=== PATIENT | female | born 1960 | race Caucasian/White ===

== ENCOUNTER 2023-05-20 06:00 | Day surgery (SDC) | payer OTHER ==
[~2023-05-20] VITALS: Ht 152.4 cm; Wt 68.0 kg
[2023-05-20] MEDS ORDERED: fentaNYL citrate 0.05 MG/ML VIAL ONE (07:28)
[2023-05-20] MEDS ORDERED: diphenhydrAMINE 50 MG/ML VIAL ONE (07:28)
[2023-05-20] MEDS ORDERED: LIDOCAINE 2% 100 MG/5 ML UJET TP ONE (07:29)
[2023-05-20] MEDS ORDERED: MIDAZOLAM 2 MG/2 ML VIAL ONE (07:29)
[2023-05-20] MEDS ORDERED: MIDAZOLAM 2 MG/2 ML VIAL IVP ONE (13:05)
[2023-05-20] MEDS ORDERED: fentaNYL citrate 0.05 MG/ML VIAL IVP ONE (13:05)
== END 2023-05-20 08:57 | disposition home or self-care (01) ==
LOC: MOR 06:00 → MMU 06:28 → MOR 08:57
PROVIDERS: ATTEND Internal Medicine Gastroenterology
DX: Z12.11 Encounter for screening for malignant neoplasm of colon (principal); K63.5 Polyp of colon; I10 Essential (primary) hypertension; E78.5 Hyperlipidemia, unspecified; F41.9 Anxiety disorder, unspecified; F32.A Depression, unspecified; M19.90 Unspecified osteoarthritis, unspecified site; E11.9 Type 2 diabetes mellitus without complications; F17.210 Nicotine dependence, cigarettes, uncomplicated; Z79.82 Long term (current) use of aspirin; Z79.84 Long term (current) use of oral hypoglycemic drugs; Z79.899 Other long term (current) drug therapy
CPT/HCPCS: 45385; 88305; J2250; J3010; J1200